=== PATIENT | male | born 1985 ===

== ENCOUNTER 2019-04-21 11:15 | Emergency (ER) | payer SELFPAY ==
[~2019-04-21] VITALS: Ht 172.7 cm; Wt 59.0 kg
[2019-04-21 11:23] VITALS: BP 120/68
--- NOTE | 2019-04-21 11:23 | NUR ---
ED Nurse Note: PT BROUGHT IN BY AMBULANCE FROM THE STREET FOUND LYING ON A SIDE WALK. PER EMS, PT WAS ALTERED AND WAS VOMITING BLOOD. PT IS POSSIBLY DRUNK. PT CAME IN SLEEPING AND. APPEARS DIRTY AND SMELLS FECES. SINUS TACH ON LOSS PREVENTION DETECTIVE 103-110.
--- NOTE | 2019-04-21 11:40 | NUR ---
ED Nurse Note: BLOOD SPECIMEN SENT.
--- NOTE | 2019-04-21 11:48 | Emergency Room Report ---
History of Present Illness General Chief Complaint: Altered Level of Consciousness Source: Patient, EMS Present Illness HPI This patient is brought in by EMS from the street. The patient was found on the sidewalk with emesis and with empty bottles of alcohol. He was unable to give any type of history as he is altered/intoxicated. Allergies: Coded Allergies: UNABLE TO ASSESS (Unverified , 04/21/19) Patient History Past Medical History: unable to obtain Past Surgical History: unable to obtain Pertinent Family History: unable to obtain Social History: Reports: alcohol use Review of Systems All Other Systems: limited Physical Exam Vital Signs Date Time Temp Pulse Resp B/P (MAP) Pulse Ox O2 Delivery O2 Flow Rate FiO2 04/21/19 11:13 98 16 122/78 (93) 100 Room Air Sp02 EP Interpretation: reviewed, normal General Appearance: no apparent distress, non-toxic, other - Discheveled, poor hygiene, foul odor, Stupor Head: normocephalic, atraumatic ENT: no angioedema Neck: normal inspection, full range of motion Respiratory: chest non-tender, lungs clear, normal breath sounds, no respiratory distress, no retraction, no accessory muscle use, speaking full sentences Cardiovascular #1: no edema, tachycardia Gastrointestinal: normal inspection, normal bowel sounds, soft, non-distended Rectal: deferred Musculoskeletal: normal inspection, normal range of motion Neurologic: responsive, motor strength/tone normal, other - Unable to fully assess. Non-focal. Psychiatric: other - unable to assess Skin: warm/dry, well hydrated, other - See RN skin exam. Medical Decision Making Diagnostic Impression: Primary Impression: Alcohol intoxication Additional Impression: Anemia ER Course This patient presents with acute alcoholic intoxication. The patient's laboratory workup did show elevated ETOH and anemia There is no evidence of trauma or injury on physical examination of this patient. The patient got up during the ED course and stated he wanted to leave it. He was alert and oriented x4 and able to ambulate without difficulty. He refused further treatment. The patient eloped out of the emergency department refusing any further treatment. Laboratory Tests Test 04/21/19 11:25 04/21/19 11:55 White Blood Count 8.1 K/UL (4.8-10.8) Red Blood Count 2.61 M/UL (4.70-6.10) L Hemoglobin 8.5 G/DL (14.2-18.0) L Hematocrit 23.8 % (42.0-52.0) L Mean Corpuscular Volume 91 FL (80-99) Mean Corpuscular Hemoglobin 32.6 PG (27.0-31.0) H Mean Corpuscular Hemoglobin Concent 35.7 G/DL (32.0-36.0) Red Cell Distribution Width 12.6 % (11.6-14.8) Platelet Count 180 K/UL (150-450) Mean Platelet Volume 4.6 FL (6.5-10.1) L Neutrophils (%) (Auto) 78.5 % (45.0-75.0) H Lymphocytes (%) (Auto) 16.8 % (20.0-45.0) L Monocytes (%) (Auto) 3.8 % (1.0-10.0) Eosinophils (%) (Auto) 0.2 % (0.0-3.0) Basophils (%) (Auto) 0.7 % (0.0-2.0) Sodium Level 135 MMOL/L (136-145) L Potassium Level 3.8 MMOL/L (3.5-5.1) Chloride Level 92 MMOL/L (98-107) L Carbon Dioxide Level 29 MMOL/L (21-32) Anion Gap 14 mmol/L (5-15) Blood Urea Nitrogen 23 mg/dL (7-18) H Creatinine 0.7 MG/DL (0.55-1.30) Estimate Glomerular Filtration Rate > 60 mL/min (>60) Glucose Level 155 MG/DL (74-106) H Calcium Level 7.9 MG/DL (8.5-10.1) L Total Bilirubin 0.5 MG/DL (0.2-1.0) Aspartate Amino Transferase (AST) 108 U/L (15-37) H Alanine Aminotransferase (ALT) 58 U/L (12-78) Alkaline Phosphatase 148 U/L (46-116) H Total Protein 6.4 G/DL (6.4-8.2) Albumin 3.1 G/DL (3.4-5.0) L Globulin 3.3 g/dL Albumin/Globulin Ratio 0.9 (1.0-2.7) L Serum Alcohol 331 mg/dL Urine Color Yellow Urine Appearance Clear Urine pH 6 (4.5-8.0) Urine Specific [place] 1.020 (1.005-1.035) Urine Protein 2+ (NEGATIVE) H Urine Glucose (UA) Negative (NEGATIVE) Urine Ketones 3+ (NEGATIVE) H Urine Blood Negative (NEGATIVE) Urine Nitrite Negative (NEGATIVE) Urine Bilirubin Negative (NEGATIVE) Urine Ictotest Negative (NEGATIVE) Urine Urobilinogen Normal MG/DL (0.0-1.0) Urine Leukocyte Esterase Negative (NEGATIVE) Urine RBC 0 /HPF (0 - 0) Urine WBC 0-2 /HPF (0 - 0) Urine Squamous Epithelial Cells Occasional /LPF Urine Bacteria Occasional /HPF (NONE) Urine Mucus Occasional /LPF Urine Opiates Screen Negative (NEGATIVE) Urine Barbiturates Screen Negative (NEGATIVE) Phencyclidine (PCP) Screen Negative (NEGATIVE) Urine Amphetamines Screen Negative (NEGATIVE) Urine Benzodiazepines Screen Negative (NEGATIVE) Urine Cocaine Screen Negative (NEGATIVE) Urine Marijuana (THC) Screen Negative (NEGATIVE) EKG Diagnostic Results Rate: normal Rhythm: NSR ST Segments: no acute changes Rhythm Strip Diag. Results EP Interpretation: yes Rate: 90's Rhythm: NSR, no PVC's, no ectopy Last Vital Signs Date Time Temp Pulse Resp B/P (MAP) Pulse Ox O2 Delivery O2 Flow Rate FiO2 04/21/19 11:23 103 16 120/68 100 Room Air Disposition: ELOPED Condition: Stable Marian Mallory DO Apr 21, 2019 11:48
[2019-04-21 12:10] LABS: BASOPHILS % (AUTO) 0.7 % (0.0-2.0); EOSINOPHILS % (AUTO) 0.2 % (0.0-3.0); HEMATOCRIT 23.8 % (42.0-52.0); HEMOGLOBIN 8.5 G/DL (14.2-18.0); LYMPHOCYTES % (AUTO) 16.8 % (20.0-45.0); MEAN CORPUSCULAR VOLUME 91 FL (80-99); MONOCYTES % (AUTO) 3.8 % (1.0-10.0); NEUTROPHILS % (AUTO) 78.5 % (45.0-75.0); PLATELET COUNT 180 K/UL (150-450); RED BLOOD COUNT 2.61 M/UL (4.70-6.10); RED CELL DISTRIBUTION WIDTH 12.6 % (11.6-14.8); WHITE BLOOD COUNT 8.1 K/UL (4.8-10.8)
[2019-04-21 12:19] LABS: ANION GAP 14 mmol/L (5-15); BLOOD UREA NITROGEN 23 mg/dL (7-18); CALCIUM 7.9 MG/DL (8.5-10.1); CARBON DIOXIDE 29 MMOL/L (21-32); CHLORIDE 92 MMOL/L (98-107); CREATININE 0.7 MG/DL (0.55-1.30); POTASSIUM 3.8 MMOL/L (3.5-5.1); SODIUM 135 MMOL/L (136-145)
[2019-04-21 12:25] VITALS: BP 118/75
[2019-04-21 12:25] LABS: ALANINE AMINOTRANSFERASE 58 U/L (12-78); ALBUMIN 3.1 G/DL (3.4-5.0); ALBUMIN/GLOBULIN RATIO 0.9 (1.0-2.7); ALKALINE PHOSPHATASE 148 U/L (46-116); ASPARTATE AMINO TRANSFERASE 108 U/L (15-37); BILIRUBIN,TOTAL 0.5 MG/DL (0.2-1.0)
--- NOTE | 2019-04-21 12:25 | NUR ---
Note undone in EDM - 04/21/19 at 1233 by AMAURY ER DISCHARGE NOTE: PATIENT WANTS TO LEAVE THE ED. DR CHEEMA NOTIFIED AND OKAY TO DC PATIENT. PT UNABLE TO WAIT DC PAPERS AND JUST LEFT. NO IV ACCESS/ID BAND. AAO X4 AND AMBULATES WITH STEADY GAIT. PT ALSO REFUSED TO SIGN DC HOMELES PAPERS.
--- NOTE | 2019-04-21 12:25 | NUR ---
ER DISCHARGE NOTE: PATIENT WANTS TO LEAVE THE ED. DR CHEEMA NOTIFIED AND OKAY TO DC PATIENT AMA. PT UNABLE TO WAIT DC PAPERS, REFUSED TO SIGN AMA FORM AND JUST LEFT. NO IV ACCESS/ID BAND. AAO X4 AND AMBULATES WITH STEADY GAIT. PT ALSO REFUSED TO SIGN DC HOMELES PAPERS.
[2019-04-21 12:31] LABS: APPEARANCE,URINE CLEAR; BILIRUBIN, URINE NEGATIVE (NEGATIVE); GLUCOSE, URINE (UA) NEGATIVE (NEGATIVE); KETONES,URINE 3+ (NEGATIVE); LEUKOCYTE ESTERASE ,URINE NEGATIVE (NEGATIVE); NITRITE,URINE NEGATIVE (NEGATIVE); PH,URINE 6 (4.5-8.0); PROTEIN,URINE 2+ (NEGATIVE); UROBILINOGEN,URINE NORMAL MG/DL (0.0-1.0)
[2019-04-21 12:35] LABS: COLOR,URINE YELLOW
== END 2019-04-21 12:25 | disposition left against medical advice (07) ==
LOC: EDBD 11:15 → EMR 12:10
DX: F10.129 Alcohol abuse with intoxication, unspecified (principal); D64.9 Anemia, unspecified
CPT/HCPCS: 36415; 80053; 80307; 81003; 82962; 85025; 96361; 96374; 99284; G0480; J2405; 80329